=== PATIENT | female | born 1975 | race African-American/Black ===

== ENCOUNTER 2017-06-07 08:47 | Day surgery (SDC) | payer BC ==
[~2017-06-07] VITALS: Ht 162.6 cm; Wt 78.9 kg
[2017-06-07 10:06] LABS: BASOPHILS % 0.6 % (0.0-2.0); EOSINOPHILS % 2.7 % (0.0-5.0); HEMATOCRIT. 36.1 % (36.0-48.0); HEMOGLOBIN. 12.4 g/dL (12.0-16.0); LYMPHOCYTES % 26.9 % (20.0-50.0); MEAN CORPUSCULAR HEMOGLOBIN 28.9 pg (28.0-32.0); MEAN CORPUSCULAR VOLUME 84.2 fL (81.0-99.0); MEAN PLATELET VOLUME 8.3 fl (7.4-10.4); MONOCYTES % 6.8 % (2.0-8.0); PLATELET 284 x1000/uL (130-400); RED BLOOD CELL COUNT 4.29 mill/uL (4.2-5.4); RED CELL DISTRIBUTION WIDTH 13.6 % (11.6-14.6)
[2017-06-07 10:11] LABS: CHLORIDE 104 mEq/L (98-107)
[2017-06-07 10:28] LABS: UCG SCREEN POSITIVE
[2017-06-07 10:33] LABS: CLARITY URINE CLEAR (CLEAR); COLOR URINE YELLOW (YELLOW); KETONES URINE NEGATIVE (NEGATIVE); LEUKOCYTE ESTERASE URINE TRACE (NEGATIVE); NITRITE URINE POSITIVE (NEGATIVE); OCCULT BLOOD URINE NEGATIVE (NEGATIVE); PH URINE 6.5 (4.5-8.0); PROTEIN URINE NEGATIVE (NEGATIVE); SPECIFIC GRAVITY URINE 1.011 (1.005-1.030); UROBILINOGEN URINE 0.2 E.U./dL (0.2-1.0)
[2017-06-07] MEDS ORDERED: LACTATED RINGERS 1,000 ML IV SCH (10:45)
[2017-06-07] MEDS ORDERED: ASPI-1159 PO (14:13)
[2017-06-07] MEDS ORDERED: AUROBINDO (14:13)
[2017-06-07] MEDS ORDERED: PROPOFOL 200MG/20ML VIAL IV ONE (14:20)
[2017-06-07] MEDS ORDERED: FENTANYL CITRATE/PF 50MCG/ML 2ML VIAL ONE (14:20)
[2017-06-07] MEDS ORDERED: MIDAZOLAM HCL 2 MG/2 ML VIAL ONE (14:21)
[2017-06-07] MEDS ORDERED: LIDOCAINE HCL/PF 1% 10 MG/ML 5ML VIAL ONE (14:22)
[2017-06-07] MEDS ORDERED: CEFAZOLIN SODIUM 1000MG/VIAL ONE (14:23)
[2017-06-07] MEDS ORDERED: ONDANSETRON HCL 4MG/2ML VIAL ONE (14:23)
[2017-06-07] MEDS ORDERED: METOCLOPRAMIDE HCL 10MG/2ML VIAL ONE (14:24)
[2017-06-07] MEDS ORDERED: MEPERIDINE HCL/PF 25MG/ML CPJ IV PRN (14:45)
[2017-06-07] MEDS ORDERED: ONDANSETRON HCL 4MG/2ML VIAL IV PRN (14:45)
[2017-06-07] MEDS ORDERED: LABETALOL 5MG/ML SYR 20 MG/4 ML SYRINGE IV PRN (14:45)
[2017-06-07] MEDS ORDERED: HYDROMORPHONE HCL/PF 2MG/ML CPJ IV PRN (14:45)
[2017-06-07] MEDS ORDERED: OXYTOCIN 10 UNITS/ML 1ML ONE (14:56)
== END 2017-06-07 17:15 | disposition home or self-care (01) ==
LOC: OR 08:47
PROVIDERS: ATTEND Obstetrics & Gynecology Obstetrics
DX: O02.1 Missed abortion (principal); J45.909 Unspecified asthma, uncomplicated; F32.89 Other specified depressive episodes; Z86.73 Personal history of transient ischemic attack (TIA), and cerebral infarction without residual deficits; Z79.82 Long term (current) use of aspirin
CPT/HCPCS: 36415; 59820; 80048; 81003; 81025; 85025; 86850; 86900; 86901; 88305; J0690; J2250; J2405; J2765; J3010; J3490; J7120; J2704

== ENCOUNTER 2018-06-11 16:20 | Emergency (ER) | payer BC ==
[~2018-06-11] VITALS: Ht 162.6 cm; Wt 68.0 kg
[~2018-06-11 16:20] MED LIST: ASPI-1159 PO; AUROBINDO
[2018-06-11 16:25] VITALS: BP 143/75
== END 2018-06-11 19:00 | disposition left against medical advice (07) ==
LOC: ER 16:20
DX: M79.604 Pain in right leg (principal); Z53.21 Procedure and treatment not carried out due to patient leaving prior to being seen by health care provider

== ENCOUNTER 2021-04-29 13:58 | Emergency (ER) | payer BC ==
[~2021-04-29] VITALS: Ht 160 cm; Wt 80.0 kg
[~2021-04-29 13:58] MED LIST changes: -ASPI-1159 PO; +ASPI-1497 PO
[2021-04-29 17:03] LABS: CLARITY URINE CLOUDY (CLEAR); COLOR URINE YELLOW (YELLOW); KETONES URINE NEGATIVE (NEGATIVE); LEUKOCYTE ESTERASE URINE NEGATIVE (NEGATIVE); NITRITE URINE NEGATIVE (NEGATIVE); OCCULT BLOOD URINE TRACE (NEGATIVE); PROTEIN URINE NEGATIVE (NEGATIVE); SPECIFIC GRAVITY URINE 1.014 (1.005-1.030); UROBILINOGEN URINE 0.2 E.U./dL (0.2-1.0)
[2021-04-29] MEDS ORDERED: MORPHINE SULFATE 4 MG/ML CPJ (NOT FOR IM USE) IV ONE (17:45)
[2021-04-29] MEDS ORDERED: ONDANSETRON HCL 4MG/2ML INJ IV ONE (17:45)
[2021-04-29 17:47] LABS: BASOPHILS % 0.3 % (0.0-2.0); EOSINOPHILS % 1.7 % (0.0-5.0); HEMATOCRIT. 38.8 % (36.0-48.0); HEMOGLOBIN. 13.3 g/dL (12.0-16.0); LYMPHOCYTES % 12.1 % (20.0-50.0); MEAN CORPUSCULAR HEMOGLOBIN 26.3 pg (28.0-32.0); MEAN CORPUSCULAR VOLUME 76.7 fL (81.0-99.0); MEAN PLATELET VOLUME 8.4 fl (7.4-10.4); MONOCYTES % 2.8 % (2.0-8.0); NEUTROPHILS % 83.1 % (40.0-76.0); PLATELET 235 x1000/uL (130-400); RED BLOOD CELL COUNT 5.06 mill/uL (4.2-5.4)
[2021-04-29 17:53] LABS: CHLORIDE 103 mEq/L (98-107)
[2021-04-29] MEDS ORDERED: IOHEXOL-300 100 ML BOTTLE ONE (21:32)
[2021-04-29] MEDS ORDERED: MAGNESIUM/ALUMINUM HYDROXIDE/SIMETHICONE 30ML UDC PO NR (22:15)
[2021-04-29] MEDS ORDERED: KETOROLAC 15MG/ML VIAL IV NR (22:15)
[2021-04-29 22:56] VITALS: BP 120/64
== END 2021-04-29 22:57 | disposition home or self-care (01) ==
LOC: ER 15:18
DX: R10.30 Lower abdominal pain, unspecified (principal); R19.7 Diarrhea, unspecified
CPT/HCPCS: 36415; 74177; 80053; 81003; 81025; 83690; 85025; 96374; 96375; 99285; J1885; J2270; J2405; Q9967

== ENCOUNTER 2023-10-20 09:25 | Emergency (ER) | payer BC ==
[~2023-10-20] VITALS: Ht 162.6 cm; Wt 84.0 kg
[2023-10-20 09:40] VITALS: TEMP 98; O2SAT 99
[2023-10-20] MEDS: HYDROCODONE/ACETAMINOPHEN 5/325MG TABLET PO ONE (12:06)
[2023-10-20] MEDS: KETOROLAC 30MG/ML VIAL IM ONE (12:06)
[2023-10-20] MEDS: TETANUS, DIPHTHERIA, PERTUSSIS VAC/PF 0.5ML (>10YR OLD) IM ONE (12:08)
[2023-10-20] MEDS ORDERED: IBUP-2030 MT (14:56)
[2023-10-20] MEDS ORDERED: LIDO700A30 TP (14:56)
[2023-10-20 15:04] VITALS: BP 122/71; PULSE 59; RESP 16; O2SAT 99
== END 2023-10-20 15:06 | disposition home or self-care (01) ==
LOC: ER 09:25
DX: M79.672 Pain in left foot (principal); R10.31 Right lower quadrant pain; Z98.890 Other specified postprocedural states; Z86.73 Personal history of transient ischemic attack (TIA), and cerebral infarction without residual deficits; W01.0XXA Fall on same level from slipping, tripping and stumbling without subsequent striking against object, initial encounter; Y93.89 Activity, other specified; Y92.89 Other specified places as the place of occurrence of the external cause; Y99.8 Other external cause status
CPT/HCPCS: 81025; 73502; 73610; 73630; 72131; 90715; 90471; 96372; 99285; J1885; Z7610